=== PATIENT | female | born 1950 | race Caucasian/White ===

== ENCOUNTER → 2022-05-23 | Outpatient (CLI) | payer MEDICARE ==
[~2022-05-23] MED LIST: REGADENOSON 0.4 MG/5 ML PF SYG IVP ONE
== END | disposition home or self-care (01) ==
LOC: SHCH 09:43
PROVIDERS: ATTEND Internal Medicine
DX: R07.9 Chest pain, unspecified (principal)
CPT/HCPCS: 78452; 96374; 93017; J2785; A9500 ×2

== ENCOUNTER 2022-06-03 10:41 | Observation (INO) | payer MEDICARE ==
[2022-06-02 15:19] VITALS: BP 154/83
[2022-06-02 15:23] LABS: BASOPHILS % (AUTO) 0.2 % (0.0-5.0); EOSINOPHILS % (AUTO) 0.4 % (0.0-8.0); HEMATOCRIT 43.2 % (36-48); LYMPHOCYTES % (AUTO) 80.6 % (21.0-51.0); MEAN CORPUSCULAR HEMOGLOBIN 31.1 pg (27.0-33.0); MEAN CORPUSCULAR HGB CONC 31.5 g/dL (32.0-36.0); MEAN CORPUSCULAR VOLUME 98.9 fL (79-99); MONOCYTES % (AUTO) 2.2 % (3.0-13.0); NEUTROPHILS % (AUTO) 16.5 % (40.0-77.0); PLATELET COUNT (AUTO) 149 K/uL (130-400); RED BLOOD CELL COUNT(AUTO) 4.37 MIL/uL (4.00-5.50); RED CELL DISTRIBUTION WIDTH 13.5 % (11.0-15.5); WHITE BLOOD COUNT (AUTO) 21.4 K/uL (4.8-10.8)
[2022-06-02 15:27] LABS: APPEARANCE,URINE CLEAR (CLEAR); BILIRUBIN,URINE NEGATIVE (NEGATIVE); COLOR,URINE COLORLESS (YELLOW); GLUCOSE, URINE (UA) NEGATIVE (NEGATIVE); KETONES,URINE NEGATIVE (NEGATIVE); LEUKOCYTE ESTERASE ,URINE NEGATIVE Leu/uL (NEGATIVE); NITRATE,URINE NEGATIVE (NEGATIVE); OCCULT BLOOD,URINE NEGATIVE (NEGATIVE); PROTEIN,URINE NEGATIVE (NEGATIVE); UROBILINOGEN,URINE 0.2 mg/dL (0.2-1.0)
[2022-06-02 15:37] LABS: INR 0.99 (0.85-1.15); PROTHROMBIN TIME 10.8 SEC (9.6-11.6)
[2022-06-02 15:38] LABS: PARTIAL THROMBOPLASTIN TIME 27.3 SEC (26.3-35.5)
[2022-06-02 15:47] LABS: RBC,URINE 0-1 /HPF (0-1); SQUAMOUS EPITHELIAL CELL,UR RARE /HPF (0-2); WBC,URINE 0-1 /HPF (0-1)
[2022-06-02 15:48] LABS: B-TYPE NATRIURETIC PEPTIDE 37 pg/mL (0-100)
[~2022-06-03] VITALS: Ht 162.6 cm; Wt 84.4 kg
[2022-06-03] VITALS (9 sets, daily range): BP systolic 121–146; BP diastolic 65–80
[~2022-06-03 10:41] MED LIST changes: +ALEN70TA80 PO; +AMLO-258 PO; +ATOR40TA71 PO; +ERGO500093 PO; +LEVO25TA54 PO; +NITR0.4T50 SL; -REGADENOSON 0.4 MG/5 ML PF SYG IVP ONE; +RISP0.5T66 PO; +SERT-440 PO
[2022-06-03] MEDS ORDERED: 0.9%NACL 1000ML 1,000 ML IV ONE (12:00)
[2022-06-03] MEDS ORDERED: LIDOCAINE HCL 400MG/20ML VIAL ONE ×2 (14:28→14:53)
[2022-06-03] MEDS ORDERED: HEPARIN 10,000 UNIT/10ML (1,000 UNIT/ML) VIAL ONE ×2 (14:29→14:53)
[2022-06-03] MEDS ORDERED: NITROGLYCERIN 50MG VIAL ONE ×2 (14:29→14:54)
[2022-06-03] MEDS ORDERED: FENTANYL CITRATE PF 50 MCG/1 ML 2ML VIAL ONE (14:29)
[2022-06-03] MEDS ORDERED: IOHEXOL-350 75 ML VIAL IV ONE ×4 (14:29→16:24)
[2022-06-03] MEDS ORDERED: MIDAZOLAM HCL 1 MG/ML 2ML VIAL ONE ×2 (14:29→16:39)
[2022-06-03] MEDS ORDERED: VERAPAMIL HCL 2.5 MG/ML VIAL ONE (14:30)
[2022-06-03] MEDS ORDERED: NICARDIPINE 25MG INJ IV ONE (14:54)
[2022-06-03] MEDS ORDERED: NITROGLYCERIN 50MG/D5W 250ML 1 BOT ONE (16:34)
[2022-06-03] MEDS ORDERED: EPTIFIBATIDE 2 MG/ML 10 ML VIAL IVP ONE (16:36)
[2022-06-03] MEDS ORDERED: TICAGRELOR 90 MG TABLET ONE (16:53)
[2022-06-03] MEDS ORDERED: ASPIRIN 325MG EC TAB PO ONE (16:53)
[2022-06-03] MEDS ORDERED: EPTIFIBATIDE 75MG/100ML BOTTLE 100 ML IV ONE (17:00)
[2022-06-03] MEDS ORDERED: EPTIFIBATIDE 75MG/100ML BOTTLE 100 ML IV SCH (17:30)
[2022-06-03] MEDS ORDERED: 0.9%NACL 1000ML 1,000 ML IV SCH (17:30)
[2022-06-03] MEDS ORDERED: MORPHINE 2 MG SYG IVP ONE (17:30)
[2022-06-03] MEDS ORDERED: GLUCAGON 1MG KIT 1 MG ML IM PRN (17:30)
[2022-06-03] MEDS ORDERED: DEXTROSE 50%-WATER 50 ML DISP.SYRIN IV PRN (17:30)
[2022-06-03] MEDS ORDERED: ONDANSETRON 4MG INJ IVP PRN (17:30)
[2022-06-03] MEDS ORDERED: NITROGLYCERIN 0.4 MG SL TAB SL PRN (20:30)
[2022-06-03] MEDS: ATORVASTATIN 40 MG TABLET PO SCH (20:55)
[2022-06-03] MEDS: SERTRALINE HCL 50 MG TABLET PO SCH (21:00)
[2022-06-03] MEDS: AMLODIPINE 5 MG TAB PO SCH (21:00)
[2022-06-03] MEDS: RISPERIDONE 0.5 MG TABLET PO SCH (21:00)
[2022-06-03] MEDS: ACETAMINOPHEN WITH CODEINE 1 TAB TAB PO PRN (21:09)
[2022-06-03] MEDS ORDERED: ASPI-1005 PO (22:16)
[2022-06-03] MEDS ORDERED: TICA90TA PO (22:16)
[2022-06-04 00:21] VITALS: BP 103/50
[2022-06-04 00:43] LABS: POTASSIUM 3.6 mmol/L (3.5-5.1)
[2022-06-04 01:01] LABS: BASOPHILS % (AUTO) 0.2 % (0.0-5.0); EOSINOPHILS % (AUTO) 0.3 % (0.0-8.0); HEMATOCRIT 34.4 % (36-48); LYMPHOCYTES % (AUTO) 59.9 % (21.0-51.0); MEAN CORPUSCULAR HEMOGLOBIN 31.3 pg (27.0-33.0); MEAN CORPUSCULAR HGB CONC 32.3 g/dL (32.0-36.0); MEAN CORPUSCULAR VOLUME 96.9 fL (79-99); MONOCYTES % (AUTO) 2.5 % (3.0-13.0); NEUTROPHILS % (AUTO) 36.9 % (40.0-77.0); PLATELET COUNT (AUTO) 129 K/uL (130-400); RED BLOOD CELL COUNT(AUTO) 3.55 MIL/uL (4.00-5.50); RED CELL DISTRIBUTION WIDTH 13.5 % (11.0-15.5); WHITE BLOOD COUNT (AUTO) 17.3 K/uL (4.8-10.8)
[2022-06-04 03:21] VITALS: BP 110/60
[2022-06-04 03:40] LABS: BASOPHILS % (AUTO) 0.2 % (0.0-5.0); EOSINOPHILS % (AUTO) 0.3 % (0.0-8.0); LYMPHOCYTES % (AUTO) 65.7 % (21.0-51.0); MEAN CORPUSCULAR HEMOGLOBIN 31.4 pg (27.0-33.0); MEAN CORPUSCULAR HGB CONC 32.4 g/dL (32.0-36.0); MEAN CORPUSCULAR VOLUME 97.1 fL (79-99); MONOCYTES % (AUTO) 2.8 % (3.0-13.0); NEUTROPHILS % (AUTO) 30.7 % (40.0-77.0); PLATELET COUNT (AUTO) 129 K/uL (130-400); RED CELL DISTRIBUTION WIDTH 13.6 % (11.0-15.5); WHITE BLOOD COUNT (AUTO) 17.6 K/uL (4.8-10.8)
[2022-06-04] MEDS: LEVOTHYROXINE 25 MCG TABLET PO SCH (06:34)
[2022-06-04 07:59] VITALS: BP 125/89
[2022-06-04] MEDS: TICAGRELOR 90 MG TABLET PO SCH ×2 (08:49→21:02)
[2022-06-04] MEDS: ASPIRIN 81MG CHEW TAB PO SCH (08:50)
[2022-06-04 12:16] VITALS: BP 109/66
[2022-06-04] MEDS ORDERED: ACETAMINOPHEN 325 MG TAB PO PRN (16:00)
[2022-06-04 16:04] VITALS: BP 125/75
[2022-06-04 19:03] VITALS: BP 122/62
[2022-06-04] MEDS: RISPERIDONE 0.5 MG TABLET PO SCH (21:00)
[2022-06-04] MEDS: ATORVASTATIN 40 MG TABLET PO SCH (21:00)
[2022-06-04] MEDS: SERTRALINE HCL 50 MG TABLET PO SCH (21:00)
[2022-06-04] MEDS: AMLODIPINE 5 MG TAB PO SCH (21:00)
[2022-06-04] MEDS: ACETAMINOPHEN WITH CODEINE 1 TAB TAB PO PRN (21:03)
[2022-06-05 00:03] VITALS: BP 104/55
[2022-06-05 03:03] VITALS: BP 135/55
[2022-06-05] MEDS: LEVOTHYROXINE 25 MCG TABLET PO SCH (06:17)
[2022-06-05 07:46] VITALS: BP 145/76
[2022-06-05 09:07] LABS: HEMATOCRIT 36.9 % (36-48); MEAN CORPUSCULAR HEMOGLOBIN 31.2 pg (27.0-33.0); MEAN CORPUSCULAR VOLUME 97.6 fL (79-99); RED BLOOD CELL COUNT(AUTO) 3.78 MIL/uL (4.00-5.50); RED CELL DISTRIBUTION WIDTH 13.8 % (11.0-15.5); WHITE BLOOD COUNT (AUTO) 16.6 K/uL (4.8-10.8)
[2022-06-05 09:17] LABS: CREATININE 0.9 mg/dL (0.5-1.5); POTASSIUM 4.6 mmol/L (3.5-5.1)
[2022-06-05] MEDS: ASPIRIN 81MG CHEW TAB PO SCH (10:14)
[2022-06-05] MEDS: TICAGRELOR 90 MG TABLET PO SCH (10:14)
[2022-06-05 11:56] VITALS: BP 131/77
[2022-06-10] MEDS ORDERED: ALENDRONATE SODIUM 35 MG TAB PO SCH (09:00)
== END 2022-06-05 15:05 | disposition home or self-care (01) ==
LOC: DAH 10:41 → DAHIP 10:42 → DAH 10:42 → 2AH 17:40
PROVIDERS: ADMIT Internal Medicine; ATTEND Internal Medicine
DX: I25.10 Atherosclerotic heart disease of native coronary artery without angina pectoris (principal); S30.1XXA Contusion of abdominal wall, initial encounter; I10 Essential (primary) hypertension; E78.5 Hyperlipidemia, unspecified; R07.89 Other chest pain; E03.9 Hypothyroidism, unspecified; D62 Acute posthemorrhagic anemia; R94.39 Abnormal result of other cardiovascular function study; Z98.61 Coronary angioplasty status; Z95.1 Presence of aortocoronary bypass graft; Z79.899 Other long term (current) drug therapy; Z98.890 Other specified postprocedural states
CPT/HCPCS: 80048 ×4; 83880; 85025 ×3; 85610; 85730; 81001; 36415 ×3; 71045; 93005; 0715T; 93458; 93571; 96365; 96366; 85018; 76882; 85027; C1769 ×4; C1894 ×3; C1760; C1761; C1887; C1874; C1725 ×2; G0378 ×46; J3010; J3490 ×6; J7030; J1644 ×3; J2250 ×2; J1327 ×3; Q9967 ×3; A4215; A4223 ×3; A4222; A4221; A4663; A4216; A4606; C9600; 99156; 99157

== ENCOUNTER → 2023-03-21 | Outpatient (CLI) | payer MEDICARE ==
[~2023-03-21] MED LIST changes: +ASPI-1005 PO; -RISP0.5T66 PO; +RISP0.5T80 PO; +TICA90TA PO
== END | disposition home or self-care (01) ==
LOC: RAH 13:21
PROVIDERS: ATTEND Family Medicine Sports Medicine
DX: M81.0 Age-related osteoporosis without current pathological fracture (principal)
CPT/HCPCS: 77080

== ENCOUNTER 2024-03-31 17:12 | Emergency (ER) | payer MEDICARE ==
[~2024-03-31] VITALS: Ht 162.6 cm; Wt 88.0 kg
[~2024-03-31 17:12] MED LIST changes: +AEC81 PO; -ASPI-1005 PO; +CYCL-309 PO; +DOCU-116 PO; -ERGO500093 PO; +ESOM40CA66 PO; +HYDR-4060 PO; -LEVO25TA54 PO; +LEVO25TA85 PO; +LISI10TA24 PO; +METO-408 PO; +MIRT-22 PO; -NITR0.4T50 SL; -RISP0.5T80 PO; +SENN-306 PO; -TICA90TA PO
[2024-03-31] MEDS: Solu-medROL 40MG VIAL IM ONE (17:40)
--- NOTE | 2024-03-31 17:41 | ERN ---
General Chief Complaint: Congestion Stated Complaint: COUGH History of Present Illness Initial Comments 73-year-old female, history of COPD, presents For cough congestion fever sore throat x4 days. Patient reports mild wheezing. Productive cough. She had a fever up until yesterday. P.o. tolerant. No nausea or vomiting. A few loose stools. Partner has similar symptoms currently. Past Medical History Past Medical History: COPD Past Surgical History: None ROS Dictation CONSTITUTIONAL: Fever HEAD/FACE: No signs of trauma. EENT: No eye pain, no blurred vision, no tearing, no double vision, no ear pain, no ear discharge, no nose pain, no nasal congestion, no throat pain, no throat swelling, no mouth pain. RESPIRATORY: Productive cough CARDIOVASCULAR: No chest pain, no edema, no palpitations, no syncope. GASTROINTESTINAL/ABDOMINAL: No abdominal pain, no constipation, no diarrhea, no nausea, no vomiting. GENITOURINARY: No abnormal discharge, no dysuria, no frequent urination, no hematuria. No complaints of pain in the genitals. MUSCULOSKELETAL: No back pain, no gout, no joint pain, no joint swelling, no muscle pain, no muscle stiffness, no neck pain. INTEGUMENTARY: No change in color, no change in hair/nails, no dryness, no lesion, no lumps, no rash. NEUROLOGICAL/PSYCH: No anxiety, not depressed, no emotional problem, no headache, no numbness, no pre-existing deficit, no history of seizures, no tremors, no weakness. HEMATOLOGIC/LYMPHATIC: Not anemic, no history of blood clots, no apparent bleeding, no bruising, glands not swollen. All Systems Negative, Except as Noted. Physical Exam Physical Exam Dictation VITAL SIGNS: Reviewed. GENERAL APPEARANCE: Alert, oriented x3, no acute distress HEAD AND FACE: Non-traumatic. EYES: PERRL, pink conjunctivas, eyelid no trauma, anterior chamber clear. EARS: Pinnas intact and no signs of trauma or erythema. Ear canals clear and no discharge. TMs no erythema. NOSE: No discharge, no bleeding. OROPHARYNX: Mouth normal, teeth no caries, tongue pink. Pharynx clear, no erythema. Tonsils no exudates, no abscesses noted. Mucous membrane moist. NECK: Supple, non-tender, no thyromegaly, no masses, no JVD, no bruits. BREAST: Deferred. CHEST: No tenderness, no crepitus, no paradoxical movement, no retractions. LUNGS: Clear, well-ventilated, symmetric, no rales, minimal wheezing HEART: Regular rate, regular rhythm, no murmur, no gallops. VASCULAR: No peripheral edema. ABDOMEN: Soft, positive bowel sounds, nondistended, no guarding, nontender, no rebound, no masses no hepatomegaly, no splenomegaly, no Trujillo's sign, no hernias. RECTAL: Deferred. GENITAL: Deferred. NEUROLOGICAL: Normal speech, gross motor function intact, gross sensory function intact. MUSCULOSKELETAL: Neck nontender, full range of motion, back nontender, full range of motion. EXTREMITIES: Nontender, full range of motion. SKIN: Color pink, dry, no turgor, no rash, no lacerations, no abrasions, no contusions. LYMPHATICS: Deferred. Results Laboratory and Microbiology Lab and Micro Result Laboratory Tests Test 03/31/24 17:33 Influenza Type A Antigen Negative For Type A Influenza Type B Antigen Negative For Type B SARS-CoV-2 Antigen (Rapid) PRESUMPTIVE NEGATIVE Orders, Meds, Vital Signs Orders Procedure Category Date Status Time Covid19 (Sars Antigen LAB 03/31/24 Complete Rapid) 17:30 Influenza Type A & B, LAB 03/31/24 Complete Rapid 17:30 Chest 1vw RAD 03/31/24 Resulted 17:30 Ipratropium/Albuterol PHA 03/31/24 Complete Neb (Duoneb) 17:30 Methylprednisolone PHA 03/31/24 Complete Succ 40mg (Solu-Medro 17:30 Current Medications Medications (Trade) Dose Ordered Sig/Chidi Route PRN Reason Start Time Stop Time Status Last Admin Dose Admin Albuterol (DUOneb) 1 UDVIAL ONCE ONCE IH 03/31/24 17:30 03/31/24 17:37 DC 03/31/24 17:46 Methylprednisolone Sodium Succinate (Solu-medROL 40MG) 40 mg ONCE ONCE IM 03/31/24 17:30 03/31/24 17:37 DC 03/31/24 17:40 Vital Signs Date Time Temp Pulse Resp B/P (MAP) Pulse Ox O2 Delivery O2 Flow Rate FiO2 03/31/24 18:40 98.1 74 18 137/69 95 Room Air* 0 21 03/31/24 17:46 76 18 03/31/24 17:33 99.0 78 20 142/65 94 Room Air* 0 21 03/31/24 17:26 98.2 70 24 127/82 Room Air 0 CC: cough, fever, congestion, dyspnea, wheezing Historian: patient Comorbidities: COPD Limitations by social determinates of health: none Ddx: viral URI, PNA, flu. VSS: stable, remained stable. O2 saturation normal. LS mild exp wheezes & congestion. CXR (independently interpreted by me): no cardiomegally, plueral effusion, focal infiltrates. Swabs negative, but partner with same symptoms is FLU A +, consistent with sy mptoms. Will treat as Flu w/ mild COPD exacerabation. Treatment in ED: duoneb, solumedrol. Re-evaluation: LS improved. Non-toxic. no dehydration or resp distress. PO tolerant Plan: DC w/ tamiflu, promethazine/codeine cough medication, steroids. Continue with home albuterol. PCP f/u. DX & DISP Departure Impression: Primary Impression: Influenza Additional Impression: Wheezing Condition: Stable Disposition: Discharge Scripts Albuterol Sulfate (Ventolin Hfa/Proventil Hfa/Proair Hfa) 90 Mcg Puff 2 PUFF IH Q4HPRN PRN for wheezing for 30 Days, #18 GM 0 Refills Prov: MARCELA ELIAS DO 03/31/24 Prednisone (Prednisone) 20 Mg Tablet 1 TAB PO BID for 5 Days, #10 TAB 0 Refills Prov: MARCELA ELIAS DO 03/31/24 Oseltamivir Phosphate (Tamiflu) 75 Mg Cap 1 CAP PO BID for 5 Days, #10 CAP 0 Refills Prov: MARCELA ELIAS DO 03/31/24 Promethazine HCl/Codeine (Promethazine-Codeine Syrup) 6.25 Mg-10 Mg/5 Ml Syrup 5 ML PO Q4HPRN PRN for cough, #120 ML 0 Refills Prov: MARCELA ELIAS DO 03/31/24 Additional Instructions: You have influenza, or the flu. This is causing your symptoms. Your vital signs and oxygen level has been stable here in the ER. You did have some wheezing here in the ER. You received an albuterol DuoNeb treatment as well as a Doseof steroids. Your chest x-ray is clear. I have prescribed Tamiflu, which is an antiviral medication for the flu. Take as prescribed. I have prescribed prednisone, which is an anti-inflammatory steroid. Take as prescribed. I recommend that you take wytg-mkt-cripodo medications such as Tylenol, ibuprofen, and cold and congestion medicines. I have also prescribed prescription strength cough medicine to use as needed. Please return to the emergency department if you have any concerns. Referrals: DUARTE WHITE MD (PCP) MARCELA ELIAS DO Mar 31, 2024 17:41
[2024-03-31 17:46] VITALS: PULSE 76; RESP 18
[2024-03-31] MEDS: IpraTROPium/alBUTERol SULFATE 3 ML SOLUTION IH ONE (17:46)
[2024-03-31 18:37] LABS: COVID19 (SARS ANTIGEN RAPID) PRESUMPTIVE NEGATIVE (NEGATIVE); INFLUENZA TYPE A Negative For Type A (NEGATIVE); INFLUENZA TYPE B Negative For Type B (NEGATIVE)
[2024-03-31 18:40] VITALS: BP 137/69; PULSE 74; RESP 18; TEMP 98; O2SAT 95
[2024-03-31] MEDS ORDERED: CODE473S6 PO (18:47)
[2024-03-31] MEDS ORDERED: PRED20TA3 PO (18:47)
[2024-03-31] MEDS ORDERED: ALBUHFA IH (18:47)
[2024-03-31] MEDS ORDERED: OSEL75 PO (18:47)
--- NOTE | 2024-03-31 19:26 | HMCIMG ---
CHEST 1VW CLINICAL HISTORY: cough COMPARISON: 06/02/2022 TECHNIQUE: Single view of the chest was obtained. FINDINGS: Lungs are clear. The cardiac size and mediastinum are unremarkable. The bony structures are stable. IMPRESSION: No acute cardiopulmonary process identified.
== END 2024-03-31 18:58 | disposition home or self-care (01) ==
LOC: EDH 17:12
DX: J11.1 Influenza due to unidentified influenza virus with other respiratory manifestations (principal); R06.2 Wheezing; J44.9 Chronic obstructive pulmonary disease, unspecified; Z20.822 Contact with and (suspected) exposure to COVID-19
CPT/HCPCS: 99284; 87804 ×2; 87426; 71045; 96372; 94640; J2919

== ENCOUNTER 2024-06-02 17:55 | Emergency (ER) | payer MEDICARE ==
[~2024-06-02] VITALS: Ht 162.6 cm; Wt 89.8 kg
[~2024-06-02 17:55] MED LIST changes: +ALBUHFA IH; +CODE473S6 PO; +OSEL75 PO; +PRED20TA3 PO
[2024-06-02 17:58] VITALS: TEMP 98.1
--- NOTE | 2024-06-02 18:51 | HMCIMG ---
INDICATION: CHEST PAIN TECHNIQUE: CHEST 1VW COMPARISON: 03/31/2024 FINDINGS AND IMPRESSION: No acute consolidation or pleural effusion. Cardiac silhouette is within normal limits. Mild degenerative changes of the spine. Loop recorder is noted.
[2024-06-02 19:30] LABS: BASOPHILS # (AUTO) 0.07 K/uL (0.00-0.20); BASOPHILS % (AUTO) 0.2 % (0.0-5.0); EOSINOPHILS % (AUTO) 0.3 % (0.0-8.0); IMMATURE GRANULOCYTE ABSOLUTE 0.05 K/uL (0-1); LYMPHOCYTES # (AUTO) 24.8 K/uL (1.0-4.8); MEAN CORPUSCULAR HEMOGLOBIN 31.4 pg (27.0-33.0); MONOCYTES # (AUTO) 0.5 K/uL (0.1-1.0); MONOCYTES % (AUTO) 1.7 % (3.0-13.0); NEUTROPHILS # (AUTO) 3.7 K/uL (1.8-7.7); NEUTROPHILS % (AUTO) 12.6 % (40.0-77.0); PLATELET COUNT (AUTO) 212 K/uL (130-400); RED BLOOD CELL COUNT(AUTO) 4.21 MIL/uL (4.00-5.50); RED CELL DISTRIBUTION WIDTH 14.6 % (11.0-15.5); WHITE BLOOD COUNT (AUTO) 29.2 K/uL (4.8-10.8)
[2024-06-02 19:39] LABS: POTASSIUM 4.2 mmol/L (3.5-5.1)
[2024-06-02] MEDS: IpraTROPium/alBUTERol SULFATE 3 ML SOLUTION IH ONE (19:53)
[2024-06-02 19:54] VITALS: PULSE 58; RESP 18
[2024-06-02 19:55] LABS: B-TYPE NATRIURETIC PEPTIDE 38 pg/mL (0-100)
[2024-06-02 20:14] VITALS: BP 130/100; PULSE 55; RESP 18; O2SAT 97
--- NOTE | 2024-06-02 20:45 | ERN ---
General Chief Complaint: Shortness of Breath Stated Complaint: SOB WITH EXACERBATION Time Seen by MD: 17:59 Time Seen by Midlevel: 17:59 Source: patient History of Present Illness Initial Comments The patient is a 73-year-old female with a past medical history of hypertension, CLL, hypothyroidism, coronary artery disease, anxiety, and depression presenting to the emergency department for evaluation of dyspnea on exertion that started two days ago. Denies any recent illness. Denies any chest pain or any other symptoms. Allergies: Coded Allergies: No Known Drug Allergies (Unverified Allergy, Unknown, 06/02/22) Home Meds Active Scripts Albuterol Sulfate (Ventolin Hfa/Proventil Hfa/Proair Hfa) 90 Mcg Puff, 2 PUFF IH Q4HPRN PRN for wheezing for 30 Days, #18 GM 0 Refills Prov:MARCELA ELIAS DO 03/31/24 Prednisone (Prednisone) 20 Mg Tablet, 1 TAB PO BID for 5 Days, #10 TAB 0 Refills Prov:MARCELA ELIAS DO 03/31/24 Oseltamivir Phosphate (Tamiflu) 75 Mg Cap, 1 CAP PO BID for 5 Days, #10 CAP 0 Refills Prov:MARCELA ELIAS DO 03/31/24 Promethazine HCl/Codeine (Promethazine-Codeine Syrup) 6.25 Mg-10 Mg/5 Ml Syrup, 5 ML PO Q4HPRN PRN for cough, #120 ML 0 Refills Prov:MARCELA ELIAS DO 03/31/24 Docusate Sodium (Colace) 100 Mg Capsule, 1 CAP PO BID for 30 Days, #60 CAP 0 Refills Prov:ROBYN SAHFORD MD 01/03/24 Hydrocodone/Acetaminophen (Hydrocodon-Acetaminophen 5-325) 5 Mg-325 Mg Tablet, 1-2 TAB PO Q4H PRN for MODERATE/SEVERE PAIN LEVEL, #56 TAB 0 Refills Prov:ROBYN ASHFORD MD 01/03/24 Cyclobenzaprine HCl (Cyclobenzaprine HCl) 10 Mg Tablet, 5 MG PO Q8H PRN for MUS BARRERA SPASMS, #45 TAB 0 Refills Prov:ROBYN ASHFORD MD 01/03/24 Aspirin (ASPIRIN 81 MG ECTAB) 81 Mg Ectab, 81 MG PO BID, #60 TAB.EC 0 Refills Prov:ORBYN ASHFORD MD 01/03/24 Reported Medications Lisinopril (Lisinopril) 10 Mg Tablet, 1 TAB PO DAILY for 30 Days, #30 TAB 0 Refills 12/27/23 Levothyroxine Sodium (Euthyrox) 25 Mcg Tablet, 1 TAB PO DAILY for 30 Days, #30 TAB 0 Refills 12/27/23 Sennosides/Docusate Sodium (Stool Softener-Laxative Tablet) 8.6 Mg-50 Mg Tablet, 3 EACH PO HS, TAB 12/27/23 Mirtazapine (Mirtazapine) 15 Mg Tablet, 1 TAB PO HS for 30 Days, #30 TAB 0 Refills 12/27/23 Esomeprazole Magnesium (Esomeprazole Magnesium) 40 Mg Capsule.dr, 1 CAP PO DAILY for 30 Days, #30 CAP 0 Refills 12/27/23 Metoprolol Succinate (Metoprolol Succinate) 25 Mg Tab.er.24h, 25 MG PO HS, TAB 12/27/23 Atorvastatin Calcium (Atorvastatin Calcium) 40 Mg Tablet, 40 MG PO HS, TAB 06/02/22 Amlodipine Besylate (Amlodipine Besylate) 10 Mg Tablet, 10 MG PO HS for 30 Days, #30 TAB 0 Refills 06/02/22 Sertraline HCl (Sertraline HCl) 100 Mg Tablet, 200 MG PO HS, TAB 06/02/22 Alendronate Sodium (Alendronate Sodium) 70 Mg Tablet, 70 MG PO QWEEK, TAB 06/02/22 Past Medical History Past Medical History: Anxiety, Asthma, Depression, Heart Disease, Hypertension, Hypothyroid Past Surgical History: Cholecystectomy Surgical History Other: RT HIP SX, HEART STENT ROS Dictation CONSTITUTIONAL: Negative except for HPI HEAD/FACE: Negative except for HPI EENT: Negative except for HPI RESPIRATORY: Negative except for HPI GASTROINTESTINAL/ABDOMINAL: Negative except for HPI GENITOURINARY: Negative except for HPI MUSCULOSKELETAL: Negative except for HPI INTEGUMENTARY: Negative except for HPI NEUROLOGICAL/PSYCH: Negative except for HPI HEMATOLOGIC/LYMPHATIC: Negative except for HPI All Systems Negative, Except as noted above. 13 point review of systems assessed and all negative except for above. Physical Exam Physical Exam Dictation Vital Signs reviewed General Appearance: Alert, oriented x 3, no acute distress, well developed, nourished. Head and Face: non-traumatic. Eyes: PERRL, pink conjunctivas, eyelid no trauma, anterior chamber with arcus senilis. Ears: Pinnas intact and no signs of trauma or erythema ear canals clear and no discharge TM no erythema Nose: No discharge, no bleeding. Oropharynx: Mouth normal, tongue pink, pharynx clear,no erythema, tonsils no exudates, no abscesses noted, mucous membrane moist Neck: Supple, non-tender, no thyromegaly, no masses, no JVD, no bruits Breast:Deferred Chest:No tenderness, no crepitus, no paradoxical movement, no retractions Lungs:Clear, well-ventilated, symmetric, no rales, no wheezing, no rhonchi, no stridor, good breath sounds bilaterally Heart: Regular rate, regular rhythm, no murmur, no gallops Vascular: no peripheral edema, Abdomen: Soft, positive bowel sounds, nondistended, no guarding, nontender, no rebound, no masses no hepatomegaly, no splenomegaly, no Trujillo's sign, no hernias. Rectal: Deferred Genital: Deferred Neurological: Normal speech, motor function intact, sensory function intact Musculoskeletal: Neck nontender, full range of motion, back nontender, full range of motion, Extremities: nontender, full range of motion Skin: Color pink, dry, no turgor, no rash, no lacerations, no abrasions, no contusions. Lymphatic: Deferred Results Laboratory and Microbiology Lab and Micro Result Laboratory Tests Test 06/02/24 19:24 White Blood Count 29.2 K/uL (4.8-10.8) H Red Blood Count 4.21 MIL/uL (4.00-5.50) Hemoglobin 13.2 g/dL (12.0-16.0) Hematocrit 40.0 % (36-48) Mean Corpuscular Volume 95.0 fL (79-99) Mean Corpuscular Hemoglobin 31.4 pg (27.0-33.0) Mean Corpuscular Hemoglobin Concent 33.0 g/dL (32.0-36.0) Red Cell Distribution Width 14.6 % (11.0-15.5) Platelet Count 212 K/uL (130-400) Mean Platelet Volume 9.7 fL (7.5-10.5) Immature Granulocyte % (Auto) 0.2 % (0-1) Neutrophils (%) (Auto) 12.6 % (40.0-77.0) L Lymphocytes (%) (Auto) 85.0 % (21.0-51.0) H Monocytes (%) (Auto) 1.7 % (3.0-13.0) L Eosinophils (%) (Auto) 0.3 % (0.0-8.0) Basophils (%) (Auto) 0.2 % (0.0-5.0) Neutrophils # (Auto) 3.7 K/uL (1.8-7.7) Lymphocytes # (Auto) 24.8 K/uL (1.0-4.8) H Monocytes # (Auto) 0.5 K/uL (0.1-1.0) Eosinophils # (Auto) 0.10 K/uL (0.00-0.70) Basophils # (Auto) 0.07 K/uL (0.00-0.20) Absolute Immature Granulocyte (auto 0.05 K/uL (0-1) Nucleated Red Blood Cells 0.0 % (0.0-0.19) Sodium Level 129 mmol/L (136-145) L Potassium Level 4.2 mmol/L (3.5-5.1) Chloride Level 93 mmol/L (101-111) L Carbon Dioxide Level 30 mmol/L (21-32) Blood Urea Nitrogen 16 mg/dL (7-18) Creatinine 1.0 mg/dL (0.5-1.0) Glomerular Filtration Rate Calc 59 mL/min (>90) Random Glucose 89 mg/dL (70-105) Total Calcium 9.2 mg/dL (8.5-10.1) Total Creatine Kinase 49 U/L (21-232) Troponin I High Sensitivity 5.2 ng/L (4-50) B-Type Natriuretic Peptide 38 pg/mL (0-100) Labs Reviewed?: Yes MDM MDM: The patient is a 73-year-old female with a past medical history of hypertension, CLL, hypothyroidism, coronary artery disease, anxiety, and depression presenting to the emergency department for evaluation of dyspnea on exertion that started two days ago. Denies any recent illness. Denies any chest pain or any other symptoms. Initial vital signs are remarkable for a temperature of 98.1 with a heart rate of 52 beats per minute. Blood pressure stable at 154/84. O2 saturation is 95% on room air. The patient is in no acute respiratory distress. The remainder of her physical examination is unremarkable. Cardiac workup was initiated. Differential diagnosis includes but is not limited to an acute coronary syndrome, pneumonia, pulmonary edema Her CBC shows leukocytosis with a white blood cell count of 29.2. The patient states her white blood cell count is chronically elevated given her history of chronic lymphocytic leukemia. Her CBC shows no anemia or thrombocytopenia. Chemistries reveal a slightly low sodium at 1:29 a.m.. Potassium is normal at 4.2. Creatinine is stable. Cardiac enzymes are negative. Chest x-ray shows no acute consolidation or pleural effusion. Cardiac silhouette is within normal limits. The patient was observed in the emergency department has remained stable and asymptomatic. I did offer admission for further observation and management given her persistent dyspnea on exertion however she states he was feeling okay to be discharged home. She states she was an appointment with the application support consultant tomorrow and states she can follow up outpatient. at bedside. Both the patient and there has been who is at bedside her eating Raimundo in the box in no acute distress. Patient is stable for discharge. There are no social concerns with this patient. Prescription drug management Prescriptions will include: None Medical management and examination interpretation discussions were had by me with other qualified healthcare professionals as indicated for the patient's care. ED Course Orders Procedure Category Date Status Time Vital Signs Per CPOE 06/02/24 Transmitted Routine 18:04 B-Type Natriuretic LAB 06/02/24 In Process Peptide 18:04 Chest 1vw RAD 06/02/24 Resulted 18:04 12 Lead Ekg Tracing- EKG 06/02/24 Logged Technical 18:04 Oxygen By Nc/Pulse Ox CPOE 06/02/24 Transmitted 18:04 Maintain Iv CPOE 06/02/24 Transmitted 18:04 Iv Insertion CPOE 06/02/24 Transmitted 18:04 Cardiac Monitoring CPOE 06/02/24 Transmitted 18:04 Pulse Oximetry With CPOE 06/02/24 Transmitted Vs And Prn 18:04 Cbc With Differential LAB 06/02/24 In Process 18:04 Activity: Br W/Brp CPOE 06/02/24 Transmitted With Assist 18:04 Urinalysis Profile LAB 06/02/24 Logged 18:04 Basic Metabolic Panel LAB 06/02/24 Complete 18:04 Cardiac Panel LAB 06/02/24 Complete 18:04 Ipratropium/Albuterol PHA 06/02/24 Complete Neb (Duoneb) 19:30 Current Medications Medications (Trade) Dose Ordered Sig/Chidi Route PRN Reason Start Time Stop Time Status Last Admin Dose Admin Albuterol (DUOneb) 1 UDVIAL ONCE ONCE IH 06/02/24 19:30 06/02/24 19:31 DC 06/02/24 19:53 Vital Signs Date Time Temp Pulse Resp B/P (MAP) Pulse Ox O2 Delivery O2 Flow Rate FiO2 06/02/24 20:14 55 18 130/100 97 Room Air* 0 21 06/02/24 19:54 58 18 06/02/24 17:58 98.1 52 18 154/84 95 Room Air 0 DX & DISP Disposition: Discharge Departure Impression: Primary Impression: Dyspnea on exertion Condition: Stable Additional Instructions: Please follow up with your application support consultant tomorrow as scheduled. If you develop any new or worsening symptoms please report to the ER for further evaluation. Referrals: SELF,REFERRAL (PCP) I have reviewed the case, and I agree with, Diagnosis and Plan I performed the substantive portion of the visit. I have reviewed and personally made and approve the management plan that is documented in the note by myself or the JOVANNY. I acknowledge for responsibility for the patient's management plan. MIKE FRANCE Jun 02, 2024 20:45
--- NOTE | 2024-06-03 06:50 | EKG ---
[facility] Test Date: 2024-06-02 Test Time: 18:06:15 Pat Name: EVETTE GUERRERO Department: ED Room: Gender: F Care Connector: [id number] : [id number] Requested By: MARCELA ELIAS Order Number: [id number] Reading MD: Fermín Munoz Measurements Intervals [place] Rate: 50 P: 48 KS: 196 QRS: -33 QRSD: 94 T: 29 QT: 450 QTc: 409 Interpretive Statements Sinus rhythm Low voltage, precordial leads Compared to ECG 12/27/2023 12:48:25 Low QRS voltage now present Sinus bradycardia no longer present Electronically Signed On 06-04-2024 13:34:40 CDT by Fermín Munoz Please click the below link to view image of tracing.
== END 2024-06-02 21:00 | disposition home or self-care (01) ==
LOC: EDH 17:55
DX: R06.09 Other forms of dyspnea (principal); E03.9 Hypothyroidism, unspecified; F32.A Depression, unspecified; F41.9 Anxiety disorder, unspecified; I11.9 Hypertensive heart disease without heart failure; I25.10 Atherosclerotic heart disease of native coronary artery without angina pectoris; J45.909 Unspecified asthma, uncomplicated; Z79.52 Long term (current) use of systemic steroids; Z79.82 Long term (current) use of aspirin; Z79.890 Hormone replacement therapy; Z79.899 Other long term (current) drug therapy; Z90.49 Acquired absence of other specified parts of digestive tract; Z95.5 Presence of coronary angioplasty implant and graft
CPT/HCPCS: 36415; 71045; 80048; 82550; 83880; 84484; 85025; 93005; 94640; 99285